=== PATIENT | female | born 1960 | race Caucasian/White ===

== ENCOUNTER 2022-04-12 16:28 | Inpatient (IN) | payer OTHER ==
[~2022-04-12] VITALS: Ht 157.5 cm; Wt 71.9 kg
[~2022-04-12 16:28] MED LIST: ASPIR-LOW81 MG PO; ATORVASTATIN CA20 MG PO; BRILINTA 90 MG90 MG PO; COZAAR25 MG PO; HYDROCODON-ACE1 EAC2 PO; LOPRESSOR 50 MG50 MG PO; PRILOSEC OTC20 MG PO; SINGULAIR10 MG PO
[2022-04-12 17:28] LABS: HEMOGLOBIN 15.4 gm/dl (12.3-15.3); RED BLOOD COUNT 5.87 M/UL (4.00-5.10); WHITE BLOOD COUNT 8.8 K/UL (4.5-11.0)
[2022-04-12 17:59] LABS: BUN/CREATININE RATIO 14 (0-10)
[2022-04-13 03:29] LABS: HEMOGLOBIN 14.7 gm/dl (12.3-15.3); RED BLOOD COUNT 5.72 M/UL (4.00-5.10); WHITE BLOOD COUNT 7.1 K/UL (4.5-11.0)
[2022-04-13 03:43] LABS: BUN/CREATININE RATIO 14 (0-10)
[2022-04-13] MEDS ORDERED: BRILINTA60 MG PO (09:57)
[2022-04-13] MEDS ORDERED: FUROSEMIDE20 MG PO (10:06)
[2022-04-13] MEDS ORDERED: METOPROLOL TART25 MG PO ×2 (10:07→10:08)
[2022-04-13] MEDS ORDERED: PROAIR HFA8.5 GM INH (10:10)
[2022-04-13] MEDS ORDERED: VOLTAREN ARTHRI20 GM TOP (10:13)
[2022-04-13 23:12] LABS: HEMOGLOBIN 14.3 gm/dl (12.3-15.3); RED BLOOD COUNT 5.51 M/UL (4.00-5.10); WHITE BLOOD COUNT 5.6 K/UL (4.5-11.0)
[2022-04-13 23:28] LABS: BUN/CREATININE RATIO 16 (0-10)
[2022-04-14 06:26] LABS: HEMOGLOBIN 14.3 gm/dl (12.3-15.3); RED BLOOD COUNT 5.53 M/UL (4.00-5.10); WHITE BLOOD COUNT 5.9 K/UL (4.5-11.0)
[2022-04-14 06:53] LABS: BUN/CREATININE RATIO 15 (0-10)
[2022-04-14] MEDS ORDERED: MEDROL4 MG PO (11:44)
[2022-04-14] MEDS ORDERED: DOXYCYCLINE HY100 MG PO (12:31)
[2022-04-14] MEDS ORDERED: MAGNESIUM400 MG PO (12:31)
[2022-04-14] MEDS ORDERED: KLOR-CON M2020 MEQ PO (12:31)
== END 2022-04-14 13:22 | disposition home or self-care (01) | DRG 981 ==
LOC: ER1 16:28 → CDU 18:34 → PROG CARE 18:34
PROVIDERS: Internal Medicine Cardiovascular Disease; Preventive Medicine Occupational Medicine; ADMIT Internal Medicine
PROC: 5A09357 Assistance with Respiratory Ventilation, Less than 24 Consecutive Hours, Continuous Positive Airway Pressure (ICD-10-PCS; 2022-04-12)
PROC: 027034Z Dilation of Coronary Artery, One Artery with Drug-eluting Intraluminal Device, Percutaneous Approach (ICD-10-PCS; principal; 2022-04-13)
PROC: 4A033BC Measurement of Arterial Pressure, Coronary, Percutaneous Approach (ICD-10-PCS; 2022-04-13)
PROC: 4A023N7 Measurement of Cardiac Sampling and Pressure, Left Heart, Percutaneous Approach (ICD-10-PCS; 2022-04-13)
PROC: B2111ZZ Fluoroscopy of Multiple Coronary Arteries using Low Osmolar Contrast (ICD-10-PCS; 2022-04-13)
PROC: B24BZZZ Ultrasonography of Heart with Aorta (ICD-10-PCS; 2022-04-13)
PROC: 5A09357 Assistance with Respiratory Ventilation, Less than 24 Consecutive Hours, Continuous Positive Airway Pressure (ICD-10-PCS; 2022-04-14)
DX: J96.21 Acute and chronic respiratory failure with hypoxia (principal); I21.A1 Myocardial infarction type 2; I50.33 Acute on chronic diastolic (congestive) heart failure; J18.9 Pneumonia, unspecified organism; Z20.822 Contact with and (suspected) exposure to COVID-19; J44.1 Chronic obstructive pulmonary disease with (acute) exacerbation; J44.0 Chronic obstructive pulmonary disease with (acute) lower respiratory infection; E87.1 Hypo-osmolality and hyponatremia; E87.2 Acidosis; J96.22 Acute and chronic respiratory failure with hypercapnia; I11.0 Hypertensive heart disease with heart failure; I08.1 Rheumatic disorders of both mitral and tricuspid valves; I25.5 Ischemic cardiomyopathy; E87.6 Hypokalemia; E78.00 Pure hypercholesterolemia, unspecified; E83.42 Hypomagnesemia; F17.210 Nicotine dependence, cigarettes, uncomplicated; I25.10 Atherosclerotic heart disease of native coronary artery without angina pectoris; Z95.5 Presence of coronary angioplasty implant and graft; Z99.81 Dependence on supplemental oxygen; Z82.49 Family history of ischemic heart disease and other diseases of the circulatory system; Z98.51 Tubal ligation status; Z82.5 Family history of asthma and other chronic lower respiratory diseases; Z88.1 Allergy status to other antibiotic agents
CPT/HCPCS: ECHO; 36415; 36600; 71045; 80048; 80053; 80061; 81001; 82550; 82553; 82803; 83036; 83690; 83735; 83880; 84132; 84439; 84443; 84484; 85025; 85027; 85347; 85610; 85652; 85730; 86140; 93005; 93306; 93571; 94640; 94660; 94664; 94760; 96374; 96375; 99152; 99153; 99285; C1725; C1769; C1874; C1887; C1894; C9600; J0461; J1644; J1940; J2920; J3010; J7040; Q9967

== ENCOUNTER → 2022-04-25 | Outpatient (CLI) | payer OTHER ==
[~2022-04-25] MED LIST changes: +BRILINTA60 MG PO; +DOXYCYCLINE HY100 MG PO; +FUROSEMIDE20 MG PO; +KLOR-CON M2020 MEQ PO; +MAGNESIUM400 MG PO; +MEDROL4 MG PO; +METOPROLOL TART25 MG PO; +PROAIR HFA8.5 GM INH; +VOLTAREN ARTHRI20 GM TOP
[2022-04-25 15:49] LABS: BUN/CREATININE RATIO 18 (0-10)
== END ==
LOC: LAB 11:08
PROVIDERS: Internal Medicine
DX: I50.22 Chronic systolic (congestive) heart failure (principal); I21.4 Non-ST elevation (NSTEMI) myocardial infarction
CPT/HCPCS: 36415; 80053; 83735; 83880

== ENCOUNTER → 2022-05-28 | Outpatient (CLI) | payer OTHER | LOC: HEART 5 13:28 | DX: J44.9 Chronic obstructive pulmonary disease, unspecified (principal); R06.02 Shortness of breath | CPT/HCPCS: 94060; 94729 ==

== ENCOUNTER → 2022-05-28 | Outpatient (CLI) | payer OTHER | LOC: RT 16:32 | DX: J96.91 Respiratory failure, unspecified with hypoxia (principal) | CPT/HCPCS: 36600; 82803 ==